=== PATIENT | female | born 2000 | race Caucasian/White ===

== ENCOUNTER 2022-02-12 03:11 | Emergency (ER) | payer BC, OTHER ==
[2022-02-12] MEDS ORDERED: IPRATROPIUM BROM 0.5MG/2.5ML ONE (03:45)
[2022-02-12] MEDS ORDERED: ALBUTEROL 2.5 MG/3 ML NEB SOL ONE (03:45)
[2022-02-12 05:06] LABS: SARS-COV-2 RT PCR NEGATIVE (NEGATIVE)
--- NOTE | 2022-02-12 05:43 | ER ---
Nurse's Notes [facility] Name: Magy Williamson Age: 21 yrs Sex: Female : 2000 Arrival Date: 02/12/2022 Time: 03:17 Bed 10 Private MD: Diagnosis: Acute upper respiratory infection, unspecified Presentation: 02/12 03:36 Chief complaint: Patient states: she has been feeling bad the last three days with bb congestion and cough but tonight she felt like she was having difficulty breathing took DayQuil yesterday and her legs are aching. Coronavirus screen: Client presents with at least one sign or symptom that may indicate coronavirus-19. Ebola Screen: No symptoms or risks identified at this time. Initial Sepsis Screen: Does the patient meet any 2 criteria? No. Patient's initial sepsis screen is negative. Does the patient have a suspected source of infection? No. Patient's initial sepsis screen is negative. Risk Assessment: Do you want to hurt yourself or someone else? Patient reports no desire to harm self or others. Onset of symptoms was February 09, 2022. 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 - Social history:: Smoking status: Patient denies any tobacco usage or history of. - Family history:: not pertinent. Screenin:40 Abuse screen: Denies threats or abuse. Nutritional screening: No deficits noted. bb Tuberculosis screening: No symptoms or risk factors identified. Fall Risk None identified. Assessment: 03:40 General: Appears in no apparent distress. Behavior is calm, cooperative. Pain: Denies bb pain. Neuro: Level of Consciousness is awake, alert, obeys commands, Oriented to person, place, time, situation. Cardiovascular: Capillary refill < 3 seconds Patient's skin is warm and dry. Respiratory: Airway is patent Respiratory effort is unlabored, Breath sounds are coarse bilaterally. GI: No signs and/or symptoms were reported involving the gastrointestinal system. Derm: Skin is pink, warm \T\ dry. Musculoskeletal: Circulation, motion, and sensation intact. 05:52 Reassessment: Patient is alert, oriented x 3, equal unlabored respirations, skin bb warm/dry/pink. pt verbalized understanding of and agrees to plan of care discharge instructions given pt ambulated with steady gait to exit accompanied by family. Vital Signs: 03:36 BP 127 / 85; Pulse 81; Resp 20 S; Temp 98.7(O); Pulse Ox 99% on R/A; Weight 104.33 kg bb (R); Height 5 ft. 7 in. (170.18 cm) (R); 05:53 BP 122 / 75; Pulse 70; Resp 16 S; Pulse Ox 100% on R/A; bb 03:36 Body Mass Index 36.02 (104.33 kg, 170.18 cm) bb ED Course: 03:17 Patient arrived in ED. ja2 03:24 Job López MD is Attending Physician. rt 03:36 Ce Almendarez, MARS is Primary Nurse. kd3 03:38 Triage completed. bb 03:38 Arm band placed on Patient placed in an exam room, on a stretcher, on pulse oximetry. bb Family accompanied patient. 03:40 Patient has correct armband on for positive identification. Bed in low position. Call bb light in reach. Side rails up X 1. Adult w/ patient. 03:54 COVID swab sent to lab. Flu and/or RSV swab sent to lab. bb 05:27 Chest Single View In Process Unspecified. EDMS 05:53 No provider procedures requiring assistance completed. Patient did not have IV access bb during this emergency room visit. Administered Medications: 03:52 Drug: DuoNeb (albuterol 2.5 mg, ipratropium 0.5 mg) (3:1) (2.5 mg - 0.5 mg) 3 ml Route: bb Nebulizer; 04:30 Follow up: Response: No adverse reaction bb Medication: 03:40 VIS not applicable for this client. bb Outcome: 05:43 Discharge ordered by . rt 05:53 Discharged to home ambulatory, with family. bb 05:53 Condition: stable 05:53 Discharge instructions given to patient, Instructed on discharge instructions, follow up and referral plans. medication usage, Demonstrated understanding of instructions, follow-up care, medications, Prescriptions given X 1. 05:54 Patient left the ED. bb Signatures: Dispatcher [employer] EDCherelle Porras RN RN Bridgette Orozco Kyli, RN RN kd3 Job López MD MD rt
--- NOTE | 2022-02-12 05:43 | EDPHYS ---
Physician Documentation [facility] Name: Magy Williamson Age: 21 yrs Sex: Female : 2000 Arrival Date: 02/12/2022 Time: 03:17 Bed 10 Private MD: ED Physician Job López HPI: 02/12 03:57 This 21 yrs old Female presents to ER via Ambulatory with complaints of Chest rt Congestion, Breathing Difficulty, Dizziness. 03:57 The patient has shortness of breath at rest. Onset: The symptoms/episode began/occurred rt gradually, 4 day(s) ago. Duration: The symptoms are continuous. The patient's shortness of breath has no apparent modifying factors. Associated signs and symptoms: Pertinent positives: productive cough. Severity of symptoms: At their worst the symptoms were moderate. Presents to the ED with sore throat, cough, congestion, rhinorrhea for about 4 days now. The patient denies cyst, states that she has been coughing up some mucus. She denies nausea, vomiting. She reports body aches, denies other pain. Symptoms are moderate severity, no other aggravating or alleviating factors.. 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 - Social history:: Smoking status: Patient denies any tobacco usage or history of. - Family history:: not pertinent. ROS: 03:57 Abdomen/GI: Negative for abdominal pain, nausea, vomiting, diarrhea, and constipation, rt MS/Extremity: Negative for injury and deformity, Skin: Negative for injury, rash, and discoloration, Neuro: Negative for headache, weakness, numbness, tingling, and seizure, Psych: Negative for depression, anxiety, suicide ideation, homicidal ideation, and hallucinations. 03:57 Cardiovascular: Positive for pleuritic chest pain, Negative for edema. 03:57 Respiratory: Positive for cough, shortness of breath. 03:57 Abdomen/GI: Positive for Exam: 03:57 Constitutional: This is a well developed, well nourished patient who is awake, alert, rt and in no acute distress. Head/Face: Normocephalic, atraumatic. Eyes: Pupils equal round and reactive to light, extra-ocular motions intact. Lids and lashes normal. Conjunctiva and sclera are non-icteric and not injected. Cornea within normal limits. Periorbital areas with no swelling, redness, or edema. ENT: Posterior pharyngeal erythema without exudates or tonsillar hypertrophy, uvula is midline. Neck: Trachea midline, no thyromegaly or masses palpated, and no cervical lymphadenopathy. Supple, full range of motion without nuchal rigidity, or vertebral point tenderness. No Meningismus. Chest/axilla: Normal chest wall appearance and motion. Nontender with no deformity. No lesions are appreciated. Cardiovascular: Regular rate and rhythm with a normal S1 and S2. No gallops, murmurs, or rubs. Normal PMI, no JVD. No pulse deficits. Respiratory: Lungs have equal breath sounds bilaterally, clear to auscultation and percussion. No rales, rhonchi or wheezes noted. No increased work of breathing, no retractions or nasal flaring. Abdomen/GI: Soft, non-tender, with normal bowel sounds. No distension or tympany. No guarding or rebound. No evidence of tenderness throughout. Back: No spinal tenderness. No costovertebral tenderness. Full range of motion. Skin: Warm, dry with normal turgor. Normal color with no rashes, no lesions, and no evidence of cellulitis. MS/ Extremity: Pulses equal, no cyanosis. Neurovascular intact. Full, normal range of motion. Neuro: Awake and alert, GCS 15, oriented to person, place, time, and situation. Cranial nerves II-XII grossly intact. Motor strength 5/5 in all extremities. Sensory grossly intact. Cerebellar exam normal. Normal gait. Psych: Awake, alert, with orientation to person, place and time. Behavior, mood, and affect are within normal limits. Vital Signs: 03:36 BP 127 / 85; Pulse 81; Resp 20 S; Temp 98.7(O); Pulse Ox 99% on R/A; Weight 104.33 kg bb (R); Height 5 ft. 7 in. (170.18 cm) (R); 05:53 BP 122 / 75; Pulse 70; Resp 16 S; Pulse Ox 100% on R/A; bb 03:36 Body Mass Index 36.02 (104.33 kg, 170.18 cm) bb MDM: 03:26 Patient medically screened. rt 05:50 Differential diagnosis: pneumonia, Pneumothorax pulmonary edema, Pulmonary Embolism. rt Data reviewed: vital signs, lab test result(s), radiologic studies. ED course: Patient presents to the ED with cough, congestion, rhinorrhea. The patient has a negative chest x-ray. Vital signs are nonconcerning for pulmonary embolism, does not require further work-up for this. The patient has significant symptomatic improvement bronchodilators in the ED, will prescribe inhaler. No hypoxia. Patient is stable for outpatient care, return precautions discussed.. 02/12 05:07 Order name: COVID-19/FLU A+B; Complete Time: 05:08 EDMS 02/12 03:41 Order name: Chest Single View XRAY rt 02/12 05:27 Order name: Chest Single View EDMS Administered Medications: 03:52 Drug: DuoNeb (albuterol 2.5 mg, ipratropium 0.5 mg) (3:1) (2.5 mg - 0.5 mg) 3 ml Route: bb Nebulizer; 04:30 Follow up: Response: No adverse reaction bb Disposition Summary: 02/12/22 05:43 Discharge Ordered Location: Home rt Problem: new rt Symptoms: have improved rt Condition: Stable rt Diagnosis - Acute upper respiratory infection, unspecified rt Followup: rt - With: Private Physician - When: 2 - 3 days - Reason: Discharge Instructions: - Discharge Summary Sheet rt - Viral Respiratory Infection, [id number] rt Forms: - Medication Reconciliation Form rt - Thank You Letter rt - Antibiotic Education rt - Prescription Opioid Use rt Prescriptions: - ALBUTEROL - inhale 3 puff by INHALATION route every 4 hours; 1 Inhaler; Refills: 0, Product rt Selection Permitted Signatures: Dispatcher [employer] Cherelle Ha, RN RN Job Guillen MD MD rt
[2022-02-12 06:05] VITALS: TEMP 98.7
[2022-02-12 06:09] VITALS: BP 122/75; O2SAT 100
--- NOTE | 2022-02-12 13:18 | RAD REPORT ---
EXAM DESCRIPTION: XR Chest, 1 View CLINICAL HISTORY: The patient is 21 years old and is Female; cough TECHNIQUE: Single view of the chest. COMPARISON: No relevant prior studies available. FINDINGS: Lungs: No pulmonary vascular congestion or consolidation. Pleural space: Unremarkable. No pneumothorax. Heart: Unremarkable. No cardiomegaly. Mediastinum: Unremarkable. Bones/joints: No acute fracture visualized. Upper abdomen: No free air in the visualized upper abdomen. IMPRESSION: No acute cardiopulmonary process identified. Electronically signed by: Kady Saldana MD 02/12/2022 5:04 AM FLIGHT SERVICE SPECIALIST Due to temporary technical issues with the PACS/Fluency reporting system, reports are being signed by the in house radiologists without review as a courtesy to insure prompt reporting. The interpreting radiologist is fully responsible for the content of the report.
== END 2022-02-12 05:54 | disposition home or self-care (01) ==
LOC: ER 03:11
DX: J06.9 Acute upper respiratory infection, unspecified (principal); Z20.822 Contact with and (suspected) exposure to COVID-19
CPT/HCPCS: 0240U; 71045; 94640; 99284; J7613; J7644

== ENCOUNTER 2023-02-01 15:33 | Emergency (ER) | payer OTHER, SELFPAY ==
--- NOTE | 2023-02-01 18:06 | EDPHYS ---
Physician Documentation [facility] Name: Magy Williamson Age: 22 yrs Sex: Female : 2000 Arrival Date: 02/01/2023 Time: 15:33 Bed 11 Private MD: ED Physician Tavon Murray HPI: 02/01 16:05 This 22 yrs old Female presents to ER via Ambulatory with complaints of Fever, cp Nausea/Vomiting/Diarrhea. 16:05 The patient reports fever, not measured (subjective). cp 16:05 Onset: The symptoms/episode began/occurred 2 day(s) ago. cp 16:05 Associated signs and symptoms: Pertinent positives: cough, diarrhea, nausea, runny cp nose, sore throat, body aches, Pertinent negatives: abdominal pain, chest pain. Severity of symptoms: in the emergency department the symptoms are unchanged despite home interventions. COUNSEL: 15:54 LMP 01/06/2023, unknown iw Historical: - Allergies: 15:54 No Known Allergies; iw - Home Meds: 15:54 None [Active]; iw - PMHx: 15:54 None; iw - PSHx: 15:54 addenoids; Mommy make-over; wisdom teeth; iw - Immunization history:: Client reports receiving the 2nd dose of the Covid vaccine, Client reports receiving the 1st dose of the Covid vaccine. - Social history:: Smoking status: Patient reports the use of cigarette tobacco products, Reported history of juuling and/or vaping. ROS: 16:10 Constitutional: Positive for body aches, Negative for fever, poor PO intake, cp 16:10 Eyes: Negative for injury, pain, redness, and discharge, cp 16:10 ENT: Positive for sore throat, Negative for drainage from ear(s), ear pain, difficulty swallowing, difficulty handling secretions, 16:10 Cardiovascular: Negative for chest pain, 16:10 Respiratory: Positive for cough, "sounds productive", Negative for wheezing, 16:10 Abdomen/GI: Positive for nausea, diarrhea, Negative for abdominal pain, constipation, active vomiting, 16:10 : Negative for urinary symptoms, 16:10 Neuro: Positive for headache, Negative for altered mental status, 16:10 All other systems are negative, Exam: 16:15 Constitutional: The patient appears in no acute distress, alert, awake, non-toxic, well cp developed, well nourished, obese, 16:15 Head/Face: Normocephalic, atraumatic. cp 16:15 Eyes: Periorbital structures: appear normal, Conjunctiva: normal, no exudate, no injection, Sclera: no appreciated abnormality, Lids and lashes: appear normal, bilaterally, 16:15 ENT: External ear(s): are unremarkable, Ear canal(s): are normal, clear, TM's: bulging, is not appreciated, bilaterally, dullness, bilaterally, erythema, is not appreciated, bilaterally, Nose: is normal, Mouth: Lips: moist, Oral mucosa: pink and intact, moist, Posterior pharynx: is normal, airway is patent, no erythema, no exudate, 16:15 Neck: ROM/movement: is normal, is supple, without pain, no range of motions limitations, no meningismus, no nuchal rigidity, Lymph nodes: no appreciated lymphadenopathy, 16:15 Chest/axilla: Inspection: normal, 16:15 Cardiovascular: Rate: normal, Rhythm: regular, 16:15 Respiratory: the patient does not display signs of respiratory distress, Respirations: normal, no use of accessory muscles, no retractions, labored breathing, is not present, Breath sounds: are clear throughout, no decreased breath sounds, rhonchi, no stridor, no wheezing, 16:15 Abdomen/GI: Exam negative for discomfort, distension, guarding, Inspection: abdomen appears normal, Vital Signs: 15:52 BP 158 / 108; Pulse 88; Resp 16; Temp 98.8; Pulse Ox 100% on R/A; iw MDM: 15:58 Patient medically screened. cp 16:05 Differential diagnosis: viral Infection, bacterial infection, bronchitis, cp gastroenteritis, meningitis. 18:05 Data reviewed: vital signs, nurses notes, lab test result(s). cp 18:05 Counseling: I had a detailed discussion with the patient and/or guardian regarding the cp historical points, exam findings, and any diagnostic results supporting the discharge/admit diagnosis, lab results, to return to the emergency department if symptoms worsen or persist or if there are any questions or concerns that arise at home. Response to treatment: the patient's symptoms have mildly improved after treatment, and as a result, I will discharge patient. 02/01 15:58 Order name: Strep cp 02/01 15:58 Order name: COVID-19 SARS RT PCR cp 02/01 15:58 Order name: Influenza Screen (a \\T\\ B); Complete Time: 17:26 cp 02/01 16:58 Order name: Throat Culture EDMS Administered Medications: No medications were administered Disposition Summary: 02/01/23 18:06 Discharge Ordered Notes: Location: Home cp Problem: new cp Symptoms: have improved cp Condition: Stable cp Diagnosis - SARS-associated coronavirus as the cause of diseases classified elsewhere cp Followup: cp - With: Private Physician - When: 2 - 3 days - Reason: Worsening of condition Discharge Instructions: - Discharge Summary Sheet cp - Aspirin and Your Heart cp - COVID-19 cp - How to Protect Yourself and Others - [facility] (05/25/2021) cp - 10 Things You Can Do to Manage Your COVID-19 Symptoms at Home - [facility] (10/13/2020) cp - COVID-19: Quarantine and Isolation - [facility] (06/27/2021) cp - COVID-19: What to Do If You Are Sick - [facility] (06/19/2021) cp Forms: - Medication Reconciliation Form cp - Thank You Letter cp - Antibiotic Education cp - Prescription Opioid Use cp - Patient Portal Instructions cp - Leadership Thank You Letter cp Prescriptions: - Bromfed DM 2-30-10 mg/5 mL Oral syrup - administer 10 milliliter ORAL route every 6 hours as needed for cold symptoms; cp 180 milliliter; Refills: 0, Product Selection Permitted - Ibuprofen 800 mg Oral Tablet - take 1 tablet ORAL route every 8 hours As needed take with food; 30 tablet; cp Refills: 0, Product Selection Permitted - Zofran 4 mg Oral Tablet - take 1 tablet ORAL route every 12 hours As needed; 20 tablet; Refills: 0, cp Product Selection Permitted Addendum: 02/03/2023 09:02 Co-signature as Attending Physician, Tavon Murray MD I reviewed the patient's care r n provided by the Advanced Practice Provider and agree with the diagnosis and treatment plan. Signatures: Dispatcher [employer] Paola Yu RN RN iw Nieto, Roman, MD MD rn Page, Corey, PA PA cp Corrections: (The following items were deleted from the chart) 02/02 15:55 02/01 16:15 Constitutional: The patient appears in no acute distress, alert, awake, cp cp
--- NOTE | 2023-02-01 18:06 | ER ---
Nurse's Notes [facility] Name: Magy Williamson Age: 22 yrs Sex: Female : 2000 Arrival Date: 02/01/2023 Time: 15:33 Bed 11 Private MD: Diagnosis: SARS-associated coronavirus as the cause of diseases classified elsewhere Presentation: 02/01 15:52 Chief complaint: Patient states: last couple days, felt like she had a respiratory iw infection, her vision got blurry and felt shaky and clammy about 30 minutes ago , +nausea and diarrhea, no vomiting, + fever , +cough. Coronavirus screen: Client presents with at least one sign or symptom that may indicate coronavirus-19. Ebola Screen: Patient negative for fever greater than or equal to 101.5 degrees Fahrenheit, and additional compatible Ebola Virus Disease symptoms No symptoms or risks identified at this time. Initial Sepsis Screen: Does the patient meet any 2 criteria? No. Patient's initial sepsis screen is negative. Does the patient have a suspected source of infection? No. Patient's initial sepsis screen is negative. Risk Assessment: Do you want to hurt yourself or someone else? Patient reports no desire to harm self or others. Onset of symptoms was January 30, 2023. 15:52 Method Of Arrival: Ambulatory iw 15:52 Acuity: AKILA 3 iw Triage Assessment: 18:00 General: Appears in no apparent distress. Behavior is calm, cooperative. GI: Reports iw nausea. 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 - Social history:: Smoking status: Patient reports the use of cigarette tobacco products, Reported history of juuling and/or vaping. Screenin:26 [facility] ED Fall Risk Assessment (Adult) Score/Fall Risk Level 0 - 2 = Low Risk. Abuse iw screen: Denies threats or abuse. Denies injuries from another. Nutritional screening: No deficits noted. Tuberculosis screening: No symptoms or risk factors identified. Assessment: 16:00 General: Appears in no apparent distress. Behavior is calm, cooperative. General: iw Reports feeling ill for fatigue for. Pain: Complains of pain in all over body. Neuro: Level of Consciousness is awake, alert, obeys commands, Oriented to person, place, time, situation, Moves all extremities. Full function. Cardiovascular: Respiratory: Respiratory effort is even, unlabored, Respiratory pattern is regular, symmetrical. GI: Abdomen is non-distended. Derm: Skin is intact, is healthy with good turgor. Vital Signs: 15:52 BP 158 / 108; Pulse 88; Resp 16; Temp 98.8; Pulse Ox 100% on R/A; iw ED Course: 15:34 Patient arrived in ED. ts1 15:35 Martínez Munoz PA is PHCP. cp 15:35 Tavon Murray MD is Attending Physician. cp 15:54 Triage completed. iw 15:54 Arm band placed on. iw 16:00 Patient has correct armband on for positive identification. Provided Education on: . iw 16:15 Strep Sent. jr12 16:15 Influenza Screen (a \T\ B) Sent. jr12 16:15 COVID-19 SARS RT PCR Sent. jr12 16:21 Strep Sent. jr12 16:21 Influenza Screen (a \T\ B) Sent. jr12 16:21 COVID-19 SARS RT PCR Sent. jr12 17:11 Paola Lynne RN is Primary Nurse. iw 18:26 No provider procedures requiring assistance completed. Patient did not have IV access iw during this emergency room visit. Administered Medications: No medications were administered Medication: 16:00 VIS not applicable for this client. iw Outcome: 18:06 Discharge ordered by . cp 18:26 Discharged to home ambulatory, iw 18:26 Condition: good 18:26 Discharge instructions given to patient, Instructed on discharge instructions, follow up and referral plans. Demonstrated understanding of instructions, follow-up care, 18:27 Patient left the ED. iw Signatures: Paola Lynne, MARS RN iw Martínez Munoz PA PA cp Simpson, Tanya, PAS PAS ts1 Hanna Truong jr12
[2023-02-01 18:31] VITALS: BP 158/108; TEMP 98.8; O2SAT 100
== END 2023-02-01 18:27 | disposition home or self-care (01) ==
LOC: ER 15:33
DX: U07.1 COVID-19 (principal)
CPT/HCPCS: 87070; 87081; 87635; 87804; 99283

== ENCOUNTER 2024-01-18 18:20 | Emergency (ER) | payer SELFPAY ==
--- NOTE | 2024-01-18 19:33 | RAD REPORT ---
EXAM: Transvaginal OB HISTORY: Abd pain;Abd cramping, COMPARISON: None TECHNIQUE: Multiple grayscale and color Doppler images were obtained in a transvaginal pelvic ultraso und. Spectral analysis of the Doppler waveforms of the ovaries were performed. FINDINGS: UTERUS: No IUP identified. No free fluid is seen in the pelvis. RIGHT OVARY: Several cysts are present in the right ovary, the largest measures 1.6 cm. These are lik suri physiologic. Vascular flow present. LEFT OVARY: Normal flow without focal mass. IMPRESSION: No IUP identified. Therefore, cannot exclude early normal first trimester , fail ed first trimester , or early ectopic. Bilateral ovarian blood flow.
[2024-01-18] MEDS ORDERED: NA CHLORIDE 0.9% 1,000 ML ONE (19:42)
[2024-01-18 19:43] LABS: Absolute Basophils 0.1 K/uL (0-0.5); Absolute Lymphocytes (CBC) 1.4 K/uL (0.7-4.9); Absolute Monocytes 0.6 K/uL (0.1-1.3); Absolute Neutrophil 5.7 K/uL (1.8-8.0); Basophils % 0.7 % (0-1.3); Eosinophils % 0.4 % (0-4.4); Hematocrit 41.3 % (36.0-45.0); Hemoglobin 14.5 g/dL (12.0-15.0); Lymphocytes % 17.9 % (15.3-44.8); MCH 35.2 pg (27.0-35.0); MCV 100.5 fL (80-100); MPV 8.1 fL (7.6-11.3); Monocytes % 8.1 % (3.3-12.3); Neutrophils % 72.9 % (41.7-73.7); Nucleated Red Blood Cells % 0.1 % (0-0); Platelets 242 thou/uL (152-406); RBC Red Blood Cell Count 4.11 M/uL (3.86-4.86); Red Cell Distribution Width 13.1 % (12.1-15.2)
[2024-01-18 19:48] LABS: Specific Gravity 1.025 (1.005-1.030); Urine Bacteria <20 /HPF (<20); Urine Bilirubin NEGATIVE (Negative); Urine Blood 3+ (OVER) (Negative); Urine Clarity Extremely Turbid (Clear); Urine Color Light-Yellow (Yellow); Urine Crystals Unidentified Few /HPF (None Seen); Urine Culture Reflex Order NOT NEEDED; Urine Glucose NEGATIVE (Negative); Urine Ketones NEGATIVE (Negative); Urine Microscopic Reflex YN ORDER UMIC; Urine Mucus Slight /HPF (None Seen); Urine Nitrite NEGATIVE (Negative); Urine Protein NEGATIVE (Negative); Urine RBC <5 /HPF (None Seen); Urine Urobilinogen Normal (Normal); Urine WBC <5 /HPF (<5); Urine Yeast (Budding) Trace /HPF (None Seen)
[2024-01-18 19:50] LABS: Specific Gravity 1.025 (1.005-1.030)
[2024-01-18 20:05] LABS: Anion Gap 7.9 mEq/L (5.0-15.0); Potassium 3.9 mEq/L (3.5-5.1)
--- NOTE | 2024-01-18 20:27 | ER ---
Nurse's Notes [facility] Name: Magy Williamson Age: 23 yrs Sex: Female : 2000 Arrival Date: 01/18/2024 Time: 18:20 Bed 16 Private MD: Diagnosis: Threatened Presentation: 01/17 19:30 Chief complaint: Patient states: I just found out today that I am and I am ha1 having vaginal bleeding. I have PCOS so I am not sure if my bleeding is related to that or a miscarriage. Coronavirus screen: Vaccine status: Patient reports being unvaccinated. Ebola Screen: No symptoms or risks identified at this time. Initial Sepsis Screen: Does the patient meet any 2 criteria? No. Patient's initial sepsis screen is negative. Does the patient have a suspected source of infection? No. Patient's initial sepsis screen is negative. Risk Assessment: Do you want to hurt yourself or someone else? Patient reports no desire to harm self or others. Onset of symptoms was January 18, 2024. 19:30 Method Of Arrival: Ambulatory ha1 19:30 Acuity: AIKLA 3 ha1 Triage Assessment: 19:30 General: Appears comfortable, Behavior is calm, cooperative. Pain: Denies pain. Neuro: ha1 Level of Consciousness is awake, alert, obeys commands, Oriented to person, place, time, situation. Cardiovascular: Capillary refill < 3 seconds Patient's skin is warm and dry. Respiratory: Airway is patent Respiratory effort is even, unlabored, Respiratory pattern is regular, symmetrical. GI: Abdomen is round non-distended, obese. : Urine is clear, Reports vaginal bleeding that is. Musculoskeletal: Circulation, motion, and sensation intact. Range of motion:. 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 - Infectious Disease History:: Denies. - Social history:: Smoking status: Patient denies any tobacco usage or history of. Screenin:00 Abuse screen: Denies threats or abuse. Denies injuries from another. ha1 19:00 [facility] ED Fall Risk Assessment (Adult) History of falling in the last 3 months, ha1 including since admission No falls in past 3 months (0 pts) Confusion or Disorientation No (0 pts) Intoxicated or Sedated No (0 pts) Impaired Gait No (0 pts) Mobility Assist Device Used No (0 pt) Altered Elimination No (0 pt) Score/Fall Risk Level 0 - 2 = Low Risk Oriented to surroundings, Maintained a safe environment, Educated pt \T\ family on fall prevention, incl call for assistance when getting out of bed, Hourly rounding (assess needs \T\ fall precautionary measures) done. Nutritional screening: No deficits noted. Tuberculosis screening: No symptoms or risk factors identified. Assessment: 18:44 Reassessment: pt not in room, remains in US. iw 18:56 Reassessment: Patient is not in room, still in US.. me1 19:30 Reassessment: see triage assessment. ha1 20:30 Reassessment: Patient and/or family updated on plan of care and expected duration. Pain ha1 level reassessed. Patient is alert, oriented x 3, equal unlabored respirations, skin warm/dry/pink. Vital Signs: 19:22 BP 146 / 100; Pulse 82; Resp 18 S; Pulse Ox 99% on R/A; Weight 124.74 kg; Height 5 ft. ha1 6 in. ; 20:30 BP 136 / 74; Pulse 81; Resp 17 S; Pulse Ox 100% on R/A; ha1 19:22 Body Mass Index 44.39 (124.74 kg, 167.64 cm) ha1 ED Course: 18:25 Patient arrived in ED. im 18:26 Martínez Gar MD is Attending Physician. tolu 18:27 Martínez Munoz PA is PHCP. cp 18:55 Aleida Camp, MARS is Primary Nurse. me1 19:00 Patient has correct armband on for positive identification. Placed in gown. Bed in low ha1 position. Call light in reach. Side rails up X 1. 19:00 Arm band placed on right wrist. ha1 19:13 US Transvaginal Ob In Process Unspecified. EDMS 19:30 Inserted saline lock: 20 gauge in right antecubital area, using aseptic technique. ha1 Blood collected. Flushed with 10 mL NS. 19:34 Abo/rh Typing Sent. ha1 19:34 Basic Metabolic Panel Sent. ha1 19:34 CBC with Diff Sent. ha1 19:34 Test, Urine Sent. ha1 19:34 Quantitative Hcg Sent. ha1 19:34 Urinalysis w/ reflexes Sent. ha1 19:56 Ty Mejia DO is Attending Physician. cp 20:19 Triage completed. ha1 20:50 No provider procedures requiring assistance completed. ha1 20:50 IV discontinued, intact, bleeding controlled, No redness/swelling at site. Pressure ha1 dressing applied. 20:50 No provider procedures requiring assistance completed. ha1 20:50 Provided Education on: FOLLOWING UP WITH OB . ha1 Administered Medications: 19:58 Drug: NS 0.9% IV 1000 ml IV at 1000 ml once; to be given as a bolus over 60 minutes ha1 Route: IV; Rate: 1000 ml; Site: right antecubital; 20:50 Follow up: Response: No adverse reaction; IV Status: Completed infusion; IV Intake: ha1 1000ml Medication: 20:50 VIS not applicable for this client. ha1 Point of Care Testing: Urine : 20:30 hCG Reading: Positive; ha1 Intake: 20:50 IV: 1000ml; Total: 1000ml. ha1 Outcome: 20:27 Discharge ordered by . cp 20:50 Discharged to home ambulatory, ha1 20:50 Patient left the ED. ha1 20:50 Condition: stable ha1 20:50 Discharge instructions given to patient, family, Instructed on discharge instructions, follow up and referral plans. Demonstrated understanding of instructions, follow-up care, Signatures: Dispatcher [employer] Martínez Hamlin MD MD cha Williams, Irene, RN RN iw Page, Corey, PA PA cp Emani Valderrama RN RN ha1 Gabriella Baird Michelle, RN RN va1 Corrections: (The following items were deleted from the chart) 20:19 19:59 Chief complaint: ha1 ha1 22:48 21:02 Patient left the ED. ha1 ha1
--- NOTE | 2024-01-18 20:27 | EDPHYS ---
Physician Documentation [facility] Name: Magy Williamson Age: 23 yrs Sex: Female : 2000 Arrival Date: 01/18/2024 Time: 18:20 Bed 16 Private MD: ED Physician Ty Mejia HPI: 01/17 18:30 This 23 yrs old Female presents to ER via Unassigned with complaints of Vaginal cp Bleeding, + Preg <12wks. 01/18 18:08 The patient presents to the emergency department with vaginal bleeding, that is light. cp course: care: none. Previous pregnancies: the patient has never been . Associated signs and symptoms: Pertinent positives: abdominal pain, vaginal bleeding, Pertinent negatives: diarrhea, dysuria, fever, vomiting. Patient reports positive home test today. Has had irregular bleeding this month and last month. 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 - Infectious Disease History:: Denies. - Social history:: Smoking status: Patient denies any tobacco usage or history of. ROS: 19:35 Constitutional: Negative for body aches, chills, fever, poor PO intake, cp 19:35 Cardiovascular: Negative for chest pain, edema, palpitations, cp 19:35 Respiratory: Negative for cough, shortness of breath, wheezing, 19:35 Abdomen/GI: Positive for abdominal pain, Negative for vomiting, diarrhea, constipation, 19:35 Back: Negative for pain at rest, pain with movement, 19:35 : Positive for vaginal bleeding, Negative for urinary symptoms, flank pain, 19:35 Neuro: Negative for altered mental status, headache, loss of consciousness, weakness, 19:35 All other systems are negative, Exam: 19:40 Constitutional: The patient appears in no acute distress, alert, awake, non-toxic, well cp developed, well nourished, obese, 19:40 Head/Face: Normocephalic, atraumatic. cp 19:40 Eyes: Periorbital structures: appear normal, Conjunctiva: normal, no exudate, no injection, Sclera: no appreciated abnormality, Lids and lashes: appear normal, bilaterally, 19:40 ENT: External ear(s): are unremarkable, Nose: is normal, Mouth: Lips: moist, Oral mucosa: pink and intact, moist, Posterior pharynx: Airway: no evidence of obstruction, patent, 19:40 Chest/axilla: Inspection: normal, 19:40 Cardiovascular: Rate: normal, Rhythm: regular, 19:40 Respiratory: the patient does not display signs of respiratory distress, Respirations: normal, no use of accessory muscles, no retractions, labored breathing, is not present, Breath sounds: are clear throughout, no decreased breath sounds, no stridor, no wheezing, 19:40 Abdomen/GI: Inspection: abdomen appears normal, Bowel sounds: active, all quadrants, Palpation: soft, in all quadrants, mild abdominal tenderness, in the left adnexal area, 19:40 Back: CVA tenderness, is absent, 19:40 Skin: no rash present. Vital Signs: 19:22 BP 146 / 100; Pulse 82; Resp 18 S; Pulse Ox 99% on R/A; Weight 124.74 kg; Height 5 ft. ha1 6 in. ; 20:30 BP 136 / 74; Pulse 81; Resp 17 S; Pulse Ox 100% on R/A; ha1 19:22 Body Mass Index 44.39 (124.74 kg, 167.64 cm) ha1 MDM: 18:26 Medical Screening Exam initiated [facility] 20:26 Data reviewed: vital signs, nurses notes, lab test result(s), radiologic studies, cp ultrasound, and as a result, I will discharge patient. 20:26 Differential diagnosis: STD, ectopic . Counseling: I had a detailed discussion cp with the patient and/or guardian regarding the historical points, exam findings, and any diagnostic results supporting the discharge/admit diagnosis, lab results, radiology results, the need for outpatient follow up, an OB/Gyne specialist, to return to the emergency department if symptoms worsen or persist or if there are any questions or concerns that arise at home. 01/17 18:27 Order name: Abo/rh Typing; Complete Time: 20:17 [facility] 01/17 20:18 Interpretation: Reviewed. cp 01/17 18:27 Order name: Basic Metabolic Panel; Complete Time: 20:17 [facility] 01/17 20:17 Interpretation: Normal except: NA 135. cp 01/17 18: Order name: CBC with Diff; Complete Time: 20:17 [facility] 01/17 20:17 Interpretation: Normal except: MCV 100.5; MCH 35.2. 01/17 18: Order name: Test, Urine; Complete Time: 20:17 [facility] 01/17 20:17 Interpretation: URINE PREG POS; Reviewed. 01/17 18: Order name: Quantitative Hcg; Complete Time: 20:17 [facility] 01/17 20:18 Interpretation: Reviewed. 01/17 18: Order name: Urinalysis w/ reflexes; Complete Time: 20:17 [facility] 01/17 20:18 Interpretation: Normal except: [facility] Extremely Turbid; UBLD 3+ (OVER); BYST Trace. 01/17 18: Order name: US Transvaginal Ob; Complete Time: 19:37 [facility] 01/17 19:38 Interpretation: Report reviewed. 01/17 18: Order name: IV Saline Lock; Complete Time: 19:33 [facility] 01/17 18:27 Order name: Labs collected and sent; Complete Time: 19:33 [facility] 01/17 18:27 Order name: NPO; Complete Time: 19:33 [facility] Administered Medications: 19:58 Drug: NS 0.9% IV 1000 ml IV at 1000 ml once; to be given as a bolus over 60 minutes ha1 Route: IV; Rate: 1000 ml; Site: right antecubital; 20:50 Follow up: Response: No adverse reaction; IV Status: Completed infusion; IV Intake: ha1 1000ml Point of Care Testing: Urine : 20:30 hCG Reading: Positive; ha1 Disposition: 21:54 I was immediately available on-site in the Emergency Department for consultation in the ms3 care of the patient. 01/18 18:17 Chart complete. cp Disposition Summary: 01/18/24 20:27 Discharge Ordered Notes: Location: Home cp Problem: new cp Symptoms: have improved cp Condition: Stable cp Diagnosis - Threatened cp Followup: cp - With: Private Physician - When: 48 Hours - Reason: Repeat Beta-HCG (48 Hours) Discharge Instructions: - Discharge Summary Sheet cp - Care cp - Threatened Miscarriage cp - Vaginal Bleeding During , First Trimester cp - First Trimester of cp - Activity Restriction During cp Forms: - Medication Reconciliation Form cp - Antibiotic Education cp - Prescription Opioid Use cp - Patient Portal Instructions cp - Leadership Thank You Letter cp Signatures: Dispatcher [employer] EDMS Martínez Gra MD MD cha Page, Corey, [place] cp, DO ms3 Emani Valderrama, RN RN ha1 Corrections: (The following items were deleted from the chart) 01/17 18:27 18:27 ABO/RH TYPING+BB.LAB.BRZ ordered. EDMS EDMS 18:27 18:27 BASIC METABOLIC PANEL+C.LAB.BRZ ordered. EDMS EDMS 18:27 18:27 CBC+H.LAB.BRZ ordered. EDMS EDMS 18:27 18:27 Test, Urine+UC.LAB.BRZ ordered. EDMS EDMS 18:27 18:27 QUANTITATIVE HCG+C.LAB.BRZ ordered. EDMS EDMS 18:27 18:27 Urinalysis+U.LAB.BRZ ordered. EDMS EDMS
[2024-01-19 00:36] VITALS: BP 136/74; O2SAT 100
== END 2024-01-18 21:02 | disposition home or self-care (01) ==
LOC: ER 18:20
DX: O20.0 Threatened abortion (principal)
CPT/HCPCS: 36415; 76817; 80048; 81001; 81025; 84702; 85025; 86900; 86901; 96360; 99284; J7030